=== PATIENT | male | born 1995 | race Caucasian/White ===

== ENCOUNTER 2017-10-28 09:43 | Observation (INO) | payer MEDICAID ==
[~2017-10-28] VITALS: Ht 177.8 cm; Wt 85.9 kg
[2017-10-28] MEDS ORDERED: SODIUM CHLORIDE 0.9% 1,000 ML IV ONE (09:52)
[2017-10-28] MEDS ORDERED: SODIUM CHLORIDE FLUSH 10ML SYR IVF ONE (10:00)
[2017-10-28] MEDS ORDERED: SODIUM CHLORIDE 0.9% 1,000ML IVBOLUS ONE (10:00)
[2017-10-28 10:23] LABS: BASOPHILS # (AUTO) 0.05 x10^3/uL (0-0.1); BASOPHILS % (AUTO) 1 % (0-1); EOSINOPHILS # (AUTO) 0.09 x10^3/uL (0-0.4); EOSINOPHILS % (AUTO) 1 % (1-7); LYMPHOCYTES # (AUTO) 2.17 x10^3/uL (1-3.4); LYMPHOCYTES % (AUTO) 22 % (22-44); MD NO; MEAN CORPUSCULAR HEMOGLOBIN 28.6 pg (27.5-34.5); MEAN CORPUSCULAR HGB CONC 33.4 g/dL (33.2-36.2); MEAN CORPUSCULAR VOLUME 85.6 fL (81-97); MEAN PLATELET VOLUME 8.4 fL (7.4-10.4); MONOCYTES # (AUTO) 0.45 x10^3/uL (0.2-0.8); MONOCYTES % (AUTO) 5 % (2-9); NEUTROPHILS # (AUTO) 6.91 x10^3/uL (1.8-6.8); NEUTROPHILS % (AUTO) 72 % (42-75); PLATELET COUNT 313 x10^3/uL (130-400); RED BLOOD COUNT 5.04 x10^6/uL (4.38-5.82); RED CELL DISTRIBUTION WIDTH 12.5 % (9.4-14.8)
[2017-10-28 10:35] LABS: ALBUMIN 4.1 g/dL (3.4-5.0); ANION GAP 7 mmol/L (5-15); CALCIUM 8.3 mg/dL (8.5-10.1); CHLORIDE 104 mmol/L (98-107); CREATININE 1.04 mg/dL (0.7-1.3)
[2017-10-28 10:36] LABS: ACETAMINOPHEN < 2 mcg/mL (10-30); SALICYLATE LEVEL < 1.7 mg/dL (2.8-20.0)
[2017-10-28 11:09] LABS: AMPHETAMINE SCREEN, URINE Negative (Negative); BARBITURATE SCREEN, URINE Negative (Negative); BENZODIAZEPINE SCREEN, URINE Negative (Negative); CANNABINOID SCREEN, URINE Negative (Negative); COCAINE SCREEN, URINE Negative (Negative); METHADONE SCREEN, URINE Negative (Negative); OPIATE SCREEN, URINE Negative (Negative)
[2017-10-28] MEDS ORDERED: NICOTINE 21 MG/24 HR PATCH.TD24 TD SCH (12:30)
[2017-10-28] MEDS ORDERED: ONDANSETRON ODT 4 MG PO PRN (12:30)
[2017-10-28] MEDS ORDERED: ACETAMINOPHEN 325 MG TABLET ONE (12:38)
[2017-10-28] MEDS ORDERED: NICOTINE 21 MG/24 HR PATCH.TD24 ONE (12:38)
[2017-10-28] MEDS: ACETAMINOPHEN 325 MG TABLET PO PRN ×2 (12:41→17:52)
[2017-10-28] MEDS ORDERED: GABAPENTIN 300 MG CAPSULE ONE (15:05)
[2017-10-28] MEDS: GABAPENTIN 300 MG CAPSULE PO SCH ×2 (15:20→22:15)
[2017-10-28] MEDS ORDERED: VENLAFAXINE 75MG TABLET PO SCH (15:30)
[2017-10-28] MEDS ORDERED: LORazepam 1MG TABLET ONE (15:36)
[2017-10-28] MEDS: LORazepam 1MG TABLET PO PRN (15:37)
[2017-10-28 17:16] VITALS: BP 118/75
[2017-10-28 19:21] VITALS: BP 138/80
[2017-10-28] MEDS ORDERED: MIRTAZAPINE 15 MG TABLET PO SCH (21:00)
[2017-10-29] MEDS: LORazepam 1MG TABLET PO PRN (06:09)
[2017-10-29] MEDS ORDERED: VENLAFAXINE 75MG TABLET PO SCH (09:00)
== END 2017-10-29 07:50 ==
LOC: ED 11:54 → EDIP 11:55 → ED 12:17 → 2N 17:09
PROVIDERS: ADMIT Hospitalist; ATTEND Hospitalist
DX: R45.851 Suicidal ideations (principal); F32.9 Major depressive disorder, single episode, unspecified; G40.909 Epilepsy, unspecified, not intractable, without status epilepticus; I10 Essential (primary) hypertension; F17.200 Nicotine dependence, unspecified, uncomplicated; E86.0 Dehydration; Z91.5 Personal history of self-harm
CPT/HCPCS: 36415; 80048; 80307; 80329; 82040; 85025; 93005; 96360; 96361; 99285; G0378; J7030; G0480

== ENCOUNTER 2020-10-01 16:03 | Emergency (ER) | payer MEDICAID ==
[~2020-10-01] VITALS: Ht 177.8 cm; Wt 95.1 kg
[2020-10-01] MEDS ORDERED: LORazepam 1MG TABLET ONE (17:09)
--- NOTE | 2020-10-01 17:14 | NUR ---
PT MEDICATED PER MAR FOR ANXIETY. ANA, CALOS, AT BS TO DISCUSS TREATMENT PLANS WITH PT FOR OUTPATIENT REHAB/DETOX.
[2020-10-01 17:22] VITALS: BP 137/87
[2020-10-01] MEDS ORDERED: LORazepam 1MG TABLET PO ONE (17:30)
--- NOTE | 2020-10-01 17:37 | NUR ---
PT D/C WITH D/C SUMMARY AND SCRIPTS. ALL QUESTIONS ANSWERED. PT AMBULATES TO REGISTRATION DESK WITH STEADY GAIT FOR D/C TO [facility]. PT DENIES ANY OTHER NEEDS PERTAINING TO THIS VISIT.
== END 2020-10-01 17:58 | disposition home or self-care (01) ==
LOC: ED 16:37
DX: J06.9 Acute upper respiratory infection, unspecified (principal); F10.139 Alcohol abuse with withdrawal, unspecified; Y90.0 Blood alcohol level of less than 20 mg/100 ml; R25.1 Tremor, unspecified
CPT/HCPCS: 99283